=== PATIENT | male | born 1965 | race Caucasian/White ===

== ENCOUNTER 2020-09-24 14:37 | Emergency (ER) | payer OTHER ==
[2020-09-24] MEDS ORDERED: Voltaren Gel 1 % TOP (17:01)
== END 2020-09-24 17:06 | disposition home or self-care (01) ==
LOC: ER1 14:37
DX: M79.604 Pain in right leg (principal); Z86.718 Personal history of other venous thrombosis and embolism; Z79.01 Long term (current) use of anticoagulants
CPT/HCPCS: 73564; 93971; 99284